=== PATIENT | female | born 2000 | race Two or more races ===

== ENCOUNTER 2019-10-18 11:15 | Emergency (ER) | payer SELFPAY ==
[~2019-10-18] VITALS: Ht 162.6 cm; Wt 68.2 kg
[~2019-10-18 11:15] MED LIST: MIRT30 PO
[2019-10-18] MEDS ORDERED: KETOROLAC TROMETHAMINE 60 MG/2 ML VIAL IM ONE (12:30)
[2019-10-18 15:09] VITALS: BP 119/88
== END 2019-10-18 15:12 | disposition home or self-care (01) ==
LOC: EMS 11:18
DX: S83.92XA Sprain of unspecified site of left knee, initial encounter (principal); F32.9 Major depressive disorder, single episode, unspecified; F12.90 Cannabis use, unspecified, uncomplicated; V00.131A Fall from skateboard, initial encounter; Y93.51 Activity, roller skating (inline) and skateboarding; Y92.89 Other specified places as the place of occurrence of the external cause; Y99.8 Other external cause status
CPT/HCPCS: 29505; 73562; 96372; 99283; J1885